=== PATIENT | male | born 1965 | race Caucasian/White ===

== ENCOUNTER 2018-11-25 20:19 | Emergency (ER) | payer BC ==
[~2018-11-25] VITALS: Ht 188 cm; Wt 120.0 kg
[2018-11-25] MEDS ORDERED: FARX1TAB3 PO (20:32)
[2018-11-25] MEDS ORDERED: GLYB5TA PO (20:32)
[2018-11-25] MEDS ORDERED: METF500T13 PO (20:32)
[2018-11-25] MEDS ORDERED: ATOR80TA59 PO (20:32)
[2018-11-25] MEDS ORDERED: OMEP40CA2 PO (20:32)
[2018-11-25] MEDS ORDERED: JANU100T PO (20:32)
[2018-11-25] MEDS ORDERED: SM A81CH PO (20:33)
[2018-11-25] MEDS ORDERED: ECOT81TA5 PO (20:33)
[2018-11-25 20:53] LABS: HEMATOCRIT 45.3 % (42.0-52.0); HEMOGLOBIN 15.8 g/dl (13.5-17.5); MEAN CORPUSCULAR HEMOGLOBIN 31.1 pg (27.0-33.0); MEAN CORPUSCULAR HGB CONC 34.9 g/dl (32.0-36.5); MEAN CORPUSCULAR VOLUME 89.2 fl (80.0-96.0); PLATELET COUNT, AUTOMATED 233 10^3/uL (150-450); RED BLOOD COUNT 5.08 10^6/uL (4.30-6.10)
[2018-11-25 21:12] LABS: INR 0.9; PROTHROMBIN TIME 12.2 SECONDS (12.1-14.4)
[2018-11-25 21:13] LABS: PARTIAL THROMBOPLASTIN TIME 33.2 SECONDS (25.4-37.6)
[2018-11-25] MEDS ORDERED: ASPIRIN 325 MG TAB PO ONE (21:15)
[2018-11-25 21:17] LABS: ATYPICAL LYMPH 5 % (0-5); EOSINOPHILS 4 % (0-5); LYMPHOCYTES 43 % (16-52); MONOCYTES 6 % (0-8); NEUTROPHILS 42 % (35-75)
[2018-11-25 21:18] LABS: PLATELET ESTIMATE NORMAL (NORMAL)
[2018-11-25 21:19] LABS: BLOOD UREA NITROGEN 16 MG/DL (7-18); CARBON DIOXIDE LEVEL 29 MEQ/L (21-32); CHLORIDE LEVEL 102 MEQ/L (98-107); CPK CREATINE PHOSPHOKINASE 150 U/L (39-308); CREATININE FOR GFR 0.92 MG/DL (0.70-1.30); GLOMERULAR FILTRATION RATE > 60.0 (>56); GLUCOSE, FASTING 203 MG/DL (70-100); POTASSIUM SERUM 3.7 MEQ/L (3.5-5.1); SODIUM LEVEL 139 MEQ/L (136-145); TROPONIN I < 0.02 NG/ML (< 0.10)
[2018-11-25] MEDS ORDERED: NS 1,000 ML IV ONE (21:45)
[2018-11-25] MEDS ORDERED: ISOVUE-370 76% 100ML VIAL (Q9967) As Ordered ONE (21:51)
--- NOTE | 2018-11-25 22:07 | ECGEPIP ---
Stationary ECG Study [facility] - ED Test Date: 2018-11-25 Pat Name: MILENA MITCHELL Department: Room: - Gender: M [employer]: : 1965 Requested By: BONILLA ISLAS Order Number: [id number] Reading MD: Jayesh Jacome Measurements Intervals [place] Rate: 90 P: 27 GA: 153 QRS: -1 QRSD: 98 T: 26 QT: 369 QTc: 452 Interpretive Statements SINUS RHYTHM Inferior Q waves of uncertain significance Nonspecific ST-T wave abnormalities Comparison tracing not on file Electronically Signed On 11-25-2018 22:07:13 EDT by Jayesh Jacome
--- NOTE | 2018-11-25 22:52 | REPVR ---
EXAM: CT Angiography Chest With Contrast EXAM DATE/TIME: 11/25/2018 10:11 PM CLINICAL HISTORY: 53 years old, male; Chest pain; Additional info: Cp TECHNIQUE: Imaging protocol: Axial computed tomographic angiography images of the chest with intravenous contrast using CT angiography protocol. Coronal and sagittal reformatted images were created and reviewed. 3D rendering: MIP reconstructed images were created and reviewed. Radiation optimization: All CT scans at this facility use at least one of these dose optimization techniques: automated exposure control; mA and/or kV adjustment per patient size (includes targeted exams where dose is matched to clinical indication); or iterative reconstruction. Contrast material: ISOVUE 370; Contrast volume: 75 ml; Contrast route: IV; COMPARISON: No relevant prior studies available. FINDINGS: Pulmonary arteries: There are no pulmonary emboli. Aorta: There is no aortic dissection or aneurysm. Lungs: There is bibasilar compressive atelectasis. Lungs otherwise clear. Pleural space: Normal. No pneumothorax. No pleural effusion. Heart: Normal. No cardiomegaly. No pericardial effusion. Lymph nodes: Unremarkable. No enlarged lymph nodes. Bones/joints: Unremarkable. No acute fracture. Soft tissues: Unremarkable. IMPRESSION: 1. There is no aortic dissection or aneurysm. 2. There are no pulmonary emboli. Electronically signed by: Nazario Miller On 11/25/2018 22:52:00 PM
[2018-11-25 23:49] LABS: CPK CREATINE PHOSPHOKINASE 121 U/L (39-308); MB/CK RELATIVE INDEX 1.24 (< OR =4); TROPONIN I < 0.02 NG/ML (< 0.10)
[2018-11-26] MEDS ORDERED: KETOROLAC 30 MG/ML VIAL (J1885) IV ONE
[2018-11-26 00:08] VITALS: BP 108/59
--- NOTE | 2018-11-27 05:43 | ECGEPIP ---
Stationary ECG Study [facility] - ED Test Date: 2018-11-25 Pat Name: MILENA MITCHELL Department: Room: - Gender: M [employer]: : 1965 Requested By: BONILLA ISLAS Order Number: [id number] Reading MD: Anjel Leon Measurements Intervals [place] Rate: 75 P: 52 [place]: 156 QRS: -4 QRSD: 98 T: 8 QT: 396 QTc: 444 Interpretive Statements SINUS RHYTHM NSTTW ABNORMALITIES SIMILAR TO PRIOR ON SAME DATE Electronically Signed On 11-27-2018 5:43:40 EDT by Anjel Leon
== END 2018-11-26 00:17 | disposition home or self-care (01) ==
LOC: M ED 20:19
DX: R07.89 Other chest pain (principal); R94.31 Abnormal electrocardiogram [ECG] [EKG]; I10 Essential (primary) hypertension; E78.5 Hyperlipidemia, unspecified; E11.9 Type 2 diabetes mellitus without complications; Z79.82 Long term (current) use of aspirin; Z79.899 Other long term (current) drug therapy
CPT/HCPCS: 36415; 71275; 80048; 82550; 82553; 84484; 85025; 85610; 85730; 93005; 93041; 94760; 96361; 96374; 99285; J1885; Q9967

== ENCOUNTER 2019-05-09 02:45 | Emergency (ER) | payer BC ==
[~2019-05-09] VITALS: Ht 188 cm; Wt 118.2 kg
[~2019-05-09 02:45] MED LIST: ATOR80TA59 PO; ECOT81TA5 PO; FARX1TAB3 PO; GLYB5TA PO; GOOD81CH3 PO; JANU100T PO; METF500T13 PO; OMEP40CA2 PO
--- NOTE | 2019-05-09 04:03 | REPVR ---
PROCEDURE INFORMATION: Exam: CT Abdomen And Pelvis Without Contrast Exam date and time: 05/09/2019 3:07 AM Clinical history: 54 years old, male; Abdominal pain; Flank; Right; Additional info: Right flank pain. History stones TECHNIQUE: Imaging protocol: Computed tomography of the abdomen and pelvis without contrast. Radiation optimization: All CT scans at this facility use at least one of these dose optimization techniques: automated exposure control; mA and/or kV adjustment per patient size (includes targeted exams where dose is matched to clinical indication); or iterative reconstruction. COMPARISON: No relevant prior studies available. FINDINGS: Liver: Normal. No mass. Gallbladder and bile ducts: There is a 2.2 cm stone in the neck of the gallbladder. There are unremarkable as well as he gallbladder fossa. The common bile duct is not abnormally dilated. Pancreas: Normal. No ductal dilation. Spleen: Normal. No splenomegaly. Adrenals: Normal. No mass. Kidneys and ureters: There are several scattered punctate calcifications in the bilateral renal adan measuring up to 3 mm in size. No obstructing urinary tract stones are seen in the kidneys, ureter or bladder bilaterally. Stomach and bowel: Unremarkable. No obstruction. No mucosal thickening. Appendix: No evidence of appendicitis. Intraperitoneal space: Unremarkable. No free air. No significant fluid collection. Vasculature: Unremarkable. No abdominal aortic aneurysm. Lymph nodes: Unremarkable. No enlarged lymph nodes. Bladder: Unremarkable as visualized. Reproductive: Unremarkable as visualized. Bones/joints: Unremarkable. No acute fracture. Soft tissues: There is a small fat only left inguinal hernia without evidence of complication. IMPRESSION: 1. No acute process. 2. There is bilateral nephrolithiasis with stones in the bilateral renal adan measuring up to 3 mm size. However, no obstructing urinary tract stones are seen involving the kidneys, ureters or bladder bilaterally. There is no evidence of obstructive uropathy. Electronically signed by: Dion Sandoval On 05/09/2019 04:03:03 AM
[2019-05-09 05:48] VITALS: BP 116/60
[2019-05-09] MEDS ORDERED: IBUP-1022 PO (06:03)
== END 2019-05-09 06:08 | disposition home or self-care (01) ==
LOC: M ED 02:45
DX: R10.9 Unspecified abdominal pain (principal); K80.20 Calculus of gallbladder without cholecystitis without obstruction; E11.9 Type 2 diabetes mellitus without complications; K21.9 Gastro-esophageal reflux disease without esophagitis; Z79.82 Long term (current) use of aspirin; Z79.84 Long term (current) use of oral hypoglycemic drugs; Z79.899 Other long term (current) drug therapy